=== PATIENT | male | born 1930 ===

== ENCOUNTER 2017-04-22 06:31 | Observation (INO) | payer MEDICARE ==
[2017-04-22 06:56] VITALS: BMI 30.7
--- NOTE | 2017-04-22 07:37 | C.PDOC ---
History Of Present Illness 87 Y/O MALE PRESENTS TO ED WITH C.O COUGH X 4DAYS. DENIES FEVER OR OTHER ASSOCIATED SYMPTOMS. . 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 denies: Fever, Chills, Vomiting, Diarrhea Ear Symptoms: Bilateral: None Recent travel outside of the [place]: No Past Medical History Reviewed: Historical Data, Nursing Documentation, Vital Signs Vital Signs: Last Vital Signs Temp 98.1 F 04/22/17 06:56 Pulse 111 H 04/22/17 06:56 Resp 20 04/22/17 06:56 BP 129/80 04/22/17 06:56 Pulse Ox 96 04/22/17 08:24 - Medical History PMH: Benign Prostatic Hyperplasia (CANCER OF PROSTATE), Gall Bladder Disease, HTN, Hypercholesterolemia, Chronic Kidney Disease (renal insuffieciency) Surgical History: Cholecystectomy Family History: States: Unknown Family Hx - Social History Hx Tobacco Use: No Hx Alcohol Use: No Hx Substance Use: No - Immunization History Hx Tetanus Toxoid Vaccination: No Hx Influenza Vaccination: No Hx Pneumococcal Vaccination: No (UNSURE) Review Of Systems Except As Marked, All Systems Reviewed And Found Negative. Constitutional: Negative for: Fever, Chills Cardiovascular: Negative for: Chest Pain Respiratory: Positive for: Cough. Negative for: Shortness of Breath, Wheezing Gastrointestinal: Negative for: Nausea, Vomiting, Abdominal Pain Skin: Negative for: Rash Neurological: Negative for: Headache, Dizziness Physical Exam - Physical Exam Appears: Non-toxic, No Acute Distress Skin: Normal Color, Warm, Dry Head: Atraumatic, Normacephalic Oral Mucosa: Moist Chest: Symmetrical Cardiovascular: Rhythm Regular Respiratory: No Accessory Muscle Use, Rales (L > R MID-BASILAR ), No Stridor, No Wheezing Gastrointestinal/Abdominal: Soft, No Tenderness Back: Normal Inspection Extremity: Normal ROM, Capillary Refill (< 2 SEC.) Neurological/Psych: Oriented x3, Normal Speech, Normal Cognition ED Course And Treatment - Laboratory Results Result Diagrams: 04/22/17 08:04 04/22/17 08:04 ECG: Interpreted By Me ECG Rhythm: Sinus Tachycardia, 1st Degree HB ECG Interpretation: Abnormal Rate From EC O2 Sat by Pulse Oximetry: 96 (RA) Pulse Ox Interpretation: Normal - Radiology CXR: Interpreted by Me CXR Interpretation: Yes: Other (PULMONARY FIBROSIS, UNCHANGED FROM 2014) Progress - Re-Evaluation Re-evaluation Note: 04/22/17 07:40 EKG, CXR, BLOODWORK. 04/22/17 08:46 PERSIST PROD COUGH. D/W DR [facility] GENERAL OFFICE DISPATCHER WILL ADMIT - Data Reviewed Data Reviewed: Lab, Diagnostic imaging, EKG, Old records - Continuity of Care Discussed patient case with:: Patient, On-call PMD-pt unassigned Disposition Counseled Patient/Family Regarding: Studies Performed, Diagnosis - Disposition Disposition: HOSPITALIZED Disposition Time: 09:01 Condition: STABLE Forms: [employer] ([place]) - POA Present On Arrival: None - Clinical Impression Clinical Impression: Pneumonia, Pulmonary asbestosis - Scribe Statement The provider has reviewed the documentation as recorded by the Scribe SM All medical record entries made by the Scribe were at my direction and personally dictated by me. I have reviewed the chart and agree that the record accurately reflects my personal performance of the history, physical exam, medical decision making, and the department course for this patient. I have also personally directed, reviewed, and agree with the discharge instructions and disposition. Decision To Admit - Pt Status Changed To: Hospital Disposition Of: Observation - . Bed Request Type: Regular Admitting Physician: Keith Vegas Patient Diagnosis: Pneumonia, Pulmonary asbestosis
[2017-04-22 08:09] LABS: BASO # 0.1 K/uL (0.0-0.2); BASO % 0.3 % (0.0-2.0); EOS # 0.3 K/uL (0.0-0.7); EOS % 1.5 % (0.0-4.0); HEMATOCRIT 41.3 % (35.0-51.0); LYMPH # 1.9 K/uL (1.0-4.3); LYMPH % 11.5 % (20.0-40.0); MEAN CELL VOLUME 94.2 fL (80.0-94.0); MEAN CORPUSCULAR HEMOGLOBIN 32.4 pg (27.0-31.0); MEAN CORPUSCULAR HGB CONC 34.4 g/dL (33.0-37.0); MONO # 1.9 K/uL (0.0-0.8); RED CELL DISTRIBUTION WIDTH 13.3 % (11.5-14.5)
[2017-04-22 08:16] LABS: POTASSIUM 3.7 mmol/L (3.6-5.2)
[2017-04-22 08:18] LABS: ALB/GLOB RATIO 0.8 (1.0-2.1); BILIRUBIN,TOTAL 1.6 mg/dL (0.2-1.3); INR 1.2; TOTAL PROTEIN 7.9 g/dL (6.3-8.3)
[2017-04-22 08:19] LABS: CALCIUM 9.9 mg/dl (8.6-10.4)
[2017-04-22 08:36] LABS: TROPONIN I 0.018 ng/mL (0.00-0.120)
[2017-04-22] MEDS ORDERED: cefTRIAXone IV 1 gm in Dextros 50 ML IV STA (08:45)
[2017-04-22] MEDS ORDERED: Azithromycin 500 MG in Sodium Chloride 0.9% 250 ML IV STA (08:45)
[2017-04-22] MEDS ORDERED: Albuterol 0.083% Inhal Sol (2.5 mg/3 mL) UD INH STA (08:45)
[2017-04-22] MEDS ORDERED: cefTRIAXone IV 1 gm in Dextros 50 ML IVPB ONE (08:59)
[2017-04-22 09:17] LABS: RBC URINE 3 /hpf (0-3); URINE BILIRUBIN NEGATIVE (NEGATIVE); URINE BLOOD NEGATIVE (NEGATIVE); URINE COLOR Amber (YELLOW); URINE GLUCOSE (UA) NORMAL (Normal); URINE KETONE NEGATIVE (NEGATIVE); URINE LEUKOCYTE ESTERASE NEG Leu/uL (Negative); URINE PROTEIN 2+ mg/dL (NEGATIVE); WBC URINE 1 /hpf (0-5)
--- NOTE | 2017-04-22 09:24 | RAD ---
HISTORY: SOB COMPARISON: Comparison made with prior study dated 08/01/2015. Comparison also made with prior CT scan chest 04/04/2016. TECHNIQUE: Chest PA and lateral FINDINGS: LUNGS: Current study re- demonstrates at chronic interstitial fibrosis of most pronounced in the mid to lower lung edouard. In addition, there also appears be chronic appearing pleural thickening particularly notable in the left lung base associated with calcified pleural plaque which are less well seen on this study as compared to high-resolution CT scan chest. PLEURA: As above. No apparent pneumothorax othorax apparent. CARDIOVASCULAR: Heart size is enlarged. Aneurysmal dilatation of the ascending thoracic aorta also less well seen compared to high-resolution CT chest. OSSEOUS STRUCTURES: No significant abnormalities. VISUALIZED UPPER ABDOMEN: Cholecystectomy clips unchanged OTHER FINDINGS: None. IMPRESSION: Re- demonstrated are chronic interstitial fibrotic changes most pronounced the lung bases. Chronic pleural thickening and calcified pleural plaque changes are less well seen compared to prior CT scan chest. Chronic atelectasis/ scarring left lung base. Cardiomegaly. Aneurysmal dilatation of the ascending thoracic aorta less well seen on this exam compared to high-resolution chest.
[2017-04-22] MEDS ORDERED: Azithromycin 500mg/250ML NS 500 MG/250 ML BAG IVPB SCH (10:15)
[2017-04-22] MEDS: Azithromycin 500 MG in Sodium Chloride 0.9% 250 ML IVPB SCH (12:43)
[2017-04-22] MEDS: Pantoprazole 40 mg EC Tab PO SCH (13:00)
[2017-04-22 16:18] VITALS: RESP 20
[2017-04-22] MEDS: Albuterol-Ipratrop 3 mg / 0.5 (3 ml) UD INH SCH (20:55)
--- NOTE | 2017-04-22 22:41 | CP.PCM.HP ---
History of Present Illness - History of Present Illness History of Present Illness: 87 Y/O HM WITH CHRONIC LUNG DISEASE FOR MANY YEARS AND HE HAS 4 DAYS OF COUGH CONGESTION, FEVER CHILLS AND SOB, CHEST TIGHTNESS AND CONGESTION ON O2 Present on Admission - Present on Admission Any Indicators Present on Admission: No History of DVT/PE: No History of Uncontrolled Diabetes: No Urinary Catheter: No Decubitus Ulcer Present: No Review of Systems - Review of Systems Systems not reviewed;Unavailable: Respiratory Distress - Constitutional Constitutional: Chills - EENT Nose/Mouth/Throat: Nasal Discharge - Cardiovascular Cardiovascular: Pedal Edema - Respiratory Respiratory: Cough, Dyspnea, Dyspnea on Exertion, Chest Congestion, Excessive Mucous Production, Change in Mucous Color, Pain with Coughing - Gastrointestinal Gastrointestinal: Bloating - Musculoskeletal Musculoskeletal: Arthralgias - Integumentary Integumentary: Dry Skin - Neurological Neurological: Weakness Past Patient History - Past Medical History & Family History Past Medical History?: Yes - Past Social History Smoking Status: Never Smoked - CARDIAC Hx Hypercholesterolemia: Yes Hx Hypertension: Yes - PULMONARY Hx Respiratory Disorders: Yes (abestos exposure hx) - NEUROLOGICAL Hx Neurological Disorder: Yes Hx Vertigo: Yes - HEENT Hx HEENT Problems: Yes Hx Cataracts: Yes - RENAL Hx Chronic Kidney Disease: Yes (renal insuffieciency) - ENDOCRINE/METABOLIC Hx Endocrine Disorders: No - HEMATOLOGICAL/ONCOLOGICAL Hx Blood Disorders: Yes Hx Cancer: Yes (prostate hx radiation 10 yrs ago) - INTEGUMENTARY Hx Dermatological Problems: No - MUSCULOSKELETAL/RHEUMATOLOGICAL Hx Musculoskeletal Disorders: No Hx Falls: No - GASTROINTESTINAL Hx Gall Bladder Disease: Yes - GENITOURINARY/GYNECOLOGICAL Hx Genitourinary Disorders: Yes Hx Prostate Cancer: Yes - PSYCHIATRIC Hx Substance Use: No - SURGICAL HISTORY Hx Cholecystectomy: Yes - ANESTHESIA Hx Anesthesia: Yes Hx Anesthesia Reactions: No Hx Malignant Hyperthermia: No Meds Allergies/Adverse Reactions: Allergies Allergy/AdvReac Type Severity Reaction Status Date / Time No Known Allergies Allergy Verified 04/22/17 06:47 Physical Exam - Constitutional Appears: Chronically Ill - Head Exam Head Exam: ATRAUMATIC, NORMAL INSPECTION, NORMOCEPHALIC - Eye Exam Eye Exam: EOMI, Normal appearance, PERRL Pupil Exam: NORMAL ACCOMODATION - ENT Exam ENT Exam: Mucous Membranes Moist, Normal Exam, Normal Oropharynx, TM's Normal Bilaterally - Neck Exam Neck exam: Positive for: Normal Inspection - Respiratory Exam Respiratory Exam: Decreased Breath Sounds, Prolonged Expiratory Phase, Rales, Rhonchi, Wheezes - Cardiovascular Exam Cardiovascular Exam: Tachycardia, REGULAR RHYTHM, +S1, +S2 - GI/Abdominal Exam GI & Abdominal Exam: Normal Bowel Sounds, Soft - Rectal Exam Rectal Exam: NORMAL INSPECTION - Exam Exam: NORMAL INSPECTION - Extremities Exam Extremities exam: Positive for: normal capillary refill, pedal pulses present - Back Exam Back exam: NORMAL INSPECTION - Neurological Exam Neurological exam: Alert, CN II-XII Intact, Normal Gait, Oriented x3, Reflexes Normal - Psychiatric Exam Psychiatric exam: Normal Affect, Normal Mood - Skin Skin Exam: Intact Results - Vital Signs Recent Vital Signs: Last Vital Signs Temp 99.1 F 04/22/17 16:00 Pulse 78 04/22/17 20:57 Resp 20 04/22/17 16:00 BP 143/73 04/22/17 16:00 Pulse Ox 95 04/22/17 16:00 - Labs Result Diagrams: 04/22/17 08:04 04/22/17 08:04 Labs: Laboratory Results - last 24 hr 04/22/17 09:04 Urine Color Trudy Urine Clarity Clear Urine pH 5.0 Ur Specific [place] 1.024 Urine Protein 2+ H Urine Glucose (UA) Normal Urine Ketones Negative Urine Blood Negative Urine Nitrate Negative Urine Bilirubin Negative Urine Urobilinogen 2.0 Ur Leukocyte Esterase Neg Urine WBC (Auto) 1 Urine RBC (Auto) 3 Ur Squamous Epith Cells < 1 Assessment & Plan (1) Chronic lung disease Status: Chronic Priority: High (2) Hypertension Status: Chronic Priority: Low (3) Pneumonia Assessment and Plan: R/O PNEUMONIA, CT CHEST POSITIVE Status: Acute
[2017-04-23] MEDS: Albuterol-Ipratrop 3 mg / 0.5 (3 ml) UD INH SCH ×4 (01:48→20:21)
[2017-04-23 08:15] LABS: BASO % 0.1 % (0.0-2.0); HEMATOCRIT 37.7 % (35.0-51.0); LYMPH # 1.9 K/uL (1.0-4.3); LYMPH % 13.2 % (20.0-40.0); MEAN CELL VOLUME 94.6 fL (80.0-94.0); MEAN CORPUSCULAR HEMOGLOBIN 31.7 pg (27.0-31.0); MEAN CORPUSCULAR HGB CONC 33.5 g/dL (33.0-37.0); MEAN PLATELET VOLUME 8.1 fL (7.2-11.7); MONO # 0.6 K/uL (0.0-0.8); MONO % 4.6 % (0.0-10.0); RED CELL DISTRIBUTION WIDTH 13.4 % (11.5-14.5); WHITE BLOOD COUNT 14.1 K/uL (4.8-10.8)
[2017-04-23] MEDS: Pantoprazole 40 mg EC Tab PO SCH (10:00)
[2017-04-23] MEDS: Enoxaparin 40 mg Syringe SC SCH (10:00)
[2017-04-23] MEDS: NIFEdipine 30 mg ER Tab PO SCH (10:00)
[2017-04-23] MEDS: MethylPREDNISolone 40 mg Vial IV SCH ×3 (10:18→21:12)
[2017-04-23] MEDS: Azithromycin 500 MG in Sodium Chloride 0.9% 250 ML IVPB SCH (12:18)
--- NOTE | 2017-04-23 23:00 | CP.PCM.PN ---
Subjective - Date & Time of Evaluation Date of Evaluation: 04/23/17 Time of Evaluation: 11:31 - Subjective Subjective: COUGH CONGESTION, LESS SOB, NO FEVER, POSITIVE LEUKOCYTOSIS Objective - Vital Signs/Intake and Output Vital Signs (last 24 hours): Temp Pulse Resp BP Pulse Ox 97.7 F 103 H 20 106/56 L 96 04/23/17 15:00 04/23/17 16:49 04/23/17 15:00 04/23/17 16:49 04/23/17 16:49 - Medications Medications: Current Medications Albuterol/Ipratropium (Duoneb 3 Mg/0.5 Mg (3 Ml) Ud) 3 ml INH RQ6 [facility] Last Admin: 04/23/17 20:21 Dose: 3 ml Enoxaparin Sodium (Lovenox) 40 mg SC DAILY [facility] Last Admin: 04/23/17 10:00 Dose: 40 mg Ceftriaxone Sodium 1 gm/ (Sodium Chloride) 100 mls @ 100 mls/hr IVPB DAILY [facility] Last Admin: 04/23/17 10:03 Dose: 100 mls/hr Azithromycin 500 mg/ Sodium (Chloride) 250 mls @ 167 mls/hr IVPB Q24H [facility] Last Admin: 04/23/17 12:18 Dose: 167 mls/hr Methylprednisolone (Solu-Medrol) 40 mg IV Q12 [facility] Last Admin: 04/23/17 21:12 Dose: 40 mg Nifedipine (Procardia Xl) 30 mg PO DAILY [facility] Last Admin: 04/23/17 10:00 Dose: 30 mg Pantoprazole Sodium (Protonix Ec Tab) 40 mg PO DAILY [facility] Last Admin: 04/23/17 10:00 Dose: 40 mg Pneumococcal Polyvalent Vaccine (Pneumovax 23 Vaccine) 0.5 ml IM .ONCE ONE Stop: 04/24/17 10:01 Rosuvastatin Calcium (Crestor) 10 mg PO HS [facility] Last Admin: 04/23/17 21:12 Dose: 10 mg Tamsulosin HCl (Flomax) 0.4 mg PO DAILY [facility] Last Admin: 04/23/17 10:00 Dose: 0.4 mg - Labs Labs: PT 13.7 SECONDS (9.7-12.2) H 04/22/17 08:04 INR 1.2 04/22/17 08:04 APTT 29 SECONDS (21-34) 04/22/17 08:04 - Constitutional Appears: Non-toxic, No Acute Distress - Head Exam Head Exam: ATRAUMATIC, NORMAL INSPECTION, NORMOCEPHALIC - Eye Exam Eye Exam: EOMI, Normal appearance Pupil Exam: NORMAL ACCOMODATION - ENT Exam ENT Exam: Mucous Membranes Moist, Normal Exam - Neck Exam Neck Exam: Normal Inspection - Respiratory Exam Respiratory Exam: Clear to Ausculation Bilateral, Prolonged Expiratory Phase, Rhonchi, Wheezes, NORMAL BREATHING PATTERN - GI/Abdominal Exam GI & Abdominal Exam: Soft, Normal Bowel Sounds - Rectal Exam Rectal Exam: NORMAL INSPECTION - Extremities Exam Extremities Exam: Full ROM, Normal Capillary Refill, Normal Inspection - Back Exam Back Exam: NORMAL INSPECTION - Neurological Exam Neurological Exam: Awake, CN II-XII Intact, Normal Gait, Oriented x3 - Psychiatric Exam Psychiatric exam: Normal Mood - Skin Skin Exam: Warm Assessment and Plan (1) Chronic lung disease Status: Chronic (2) Hypertension Status: Chronic (3) Pneumonia Assessment & Plan: ON ANTIBIOTICS Status: Acute
[2017-04-24] MEDS: Albuterol-Ipratrop 3 mg / 0.5 (3 ml) UD INH SCH ×5 (01:43→19:11)
[2017-04-24] MEDS ORDERED: Aluminum Hydroxide/Magnesium Hydroxide Susp (30 mL) PO STA (01:53)
[2017-04-24] MEDS: Pantoprazole 40 mg EC Tab PO SCH (09:41)
[2017-04-24] MEDS: MethylPREDNISolone 40 mg Vial IV SCH ×2 (09:42→21:30)
[2017-04-24] MEDS: NIFEdipine 30 mg ER Tab PO SCH (09:42)
[2017-04-24] MEDS: Enoxaparin 40 mg Syringe SC SCH (09:42)
[2017-04-24] MEDS ORDERED: Pneumococcal 23-Valent Vaccine IM ONE (10:00)
[2017-04-24] MEDS: Azithromycin 500 MG in Sodium Chloride 0.9% 250 ML IVPB SCH (11:16)
[2017-04-24] MEDS ORDERED: Aluminum Hydroxide/Magnesium Hydroxide Susp (30 mL) PO PRN (18:30)
--- NOTE | 2017-04-24 22:26 | CP.PCM.PN ---
Subjective - Date & Time of Evaluation Date of Evaluation: 04/24/17 Time of Evaluation: 10:22 - Subjective Subjective: cough,less sob, no chest pain, no nausea. Objective - Vital Signs/Intake and Output Vital Signs (last 24 hours): Temp Pulse Resp BP Pulse Ox 98.0 F 93 H 20 111/70 96 04/24/17 15:00 04/24/17 15:00 04/24/17 15:00 04/24/17 15:00 04/24/17 15:00 Intake and Output: 04/24/17 04/25/17 18:59 06:59 Intake Total 750 800 Balance 750 800 - Medications Medications: Current Medications Al Hydrox/Mg Hydrox/Simethicone (Maalox 30 Ml) 30 ml PO TID PRN PRN Reason: Indigestion / Heartburn Last Admin: 04/24/17 18:27 Dose: 30 ml Albuterol/Ipratropium (Duoneb 3 Mg/0.5 Mg (3 Ml) Ud) 3 ml INH RQ6 [facility] Last Admin: 04/24/17 19:11 Dose: 3 ml Enoxaparin Sodium (Lovenox) 40 mg SC DAILY [facility] Last Admin: 04/24/17 09:42 Dose: 40 mg Ceftriaxone Sodium 1 gm/ (Sodium Chloride) 100 mls @ 100 mls/hr IVPB DAILY [facility] Last Admin: 04/24/17 09:42 Dose: 100 mls/hr Azithromycin 500 mg/ Sodium (Chloride) 250 mls @ 167 mls/hr IVPB Q24H [facility] Last Admin: 04/24/17 11:16 Dose: 167 mls/hr Methylprednisolone (Solu-Medrol) 40 mg IV Q12 [facility] Last Admin: 04/24/17 21:30 Dose: 40 mg Nifedipine (Procardia Xl) 30 mg PO DAILY [facility] Last Admin: 04/24/17 09:42 Dose: 30 mg Pantoprazole Sodium (Protonix Ec Tab) 40 mg PO DAILY [facility] Last Admin: 04/24/17 09:41 Dose: 40 mg Rosuvastatin Calcium (Crestor) 10 mg PO HS [facility] Last Admin: 04/24/17 21:30 Dose: 10 mg Tamsulosin HCl (Flomax) 0.4 mg PO DAILY [facility] Last Admin: 04/24/17 09:41 Dose: 0.4 mg - Labs Labs: PT 13.7 SECONDS (9.7-12.2) H 04/22/17 08:04 INR 1.2 04/22/17 08:04 APTT 29 SECONDS (21-34) 04/22/17 08:04 - Constitutional Appears: Non-toxic, No Acute Distress - Head Exam Head Exam: ATRAUMATIC, NORMAL INSPECTION, NORMOCEPHALIC - Eye Exam Eye Exam: EOMI, Normal appearance, PERRL Pupil Exam: NORMAL ACCOMODATION - ENT Exam ENT Exam: Mucous Membranes Moist, Normal Exam, Normal Oropharynx, TM's Normal Bilaterally - Respiratory Exam Respiratory Exam: Decreased Breath Sounds, Rales - Cardiovascular Exam Cardiovascular Exam: Tachycardia, REGULAR RHYTHM, +S1, +S2, Murmur - GI/Abdominal Exam GI & Abdominal Exam: Soft, Normal Bowel Sounds - Extremities Exam Extremities Exam: Full ROM, Normal Capillary Refill, Normal Inspection - Neurological Exam Neurological Exam: Alert, Awake, CN II-XII Intact, Normal Gait, Oriented x3 Neuro motor strength exam: Left Upper Extremity: 5, Right Upper Extremity: 5, Left Lower Extremity: 5, Right Lower Extremity: 5 - Psychiatric Exam Psychiatric exam: Normal Mood - Skin Skin Exam: Intact Assessment and Plan (1) Chronic lung disease Status: Chronic (2) Hypertension Status: Chronic (3) Pneumonia Status: Acute
[2017-04-25 01:15] VITALS: O2SAT 97
[2017-04-25] MEDS: Albuterol-Ipratrop 3 mg / 0.5 (3 ml) UD INH SCH ×3 (01:16→12:53)
[2017-04-25 07:44] LABS: POTASSIUM 4.3 mmol/L (3.6-5.2)
[2017-04-25 07:47] LABS: CALCIUM 8.8 mg/dl (8.6-10.4)
[2017-04-25 07:55] LABS: BASO % 0.1 % (0.0-2.0); HEMATOCRIT 34.8 % (35.0-51.0); LYMPH # 1.3 K/uL (1.0-4.3); LYMPH % 7.2 % (20.0-40.0); MEAN CELL VOLUME 93.5 fL (80.0-94.0); MEAN CORPUSCULAR HEMOGLOBIN 31.8 pg (27.0-31.0); MEAN PLATELET VOLUME 7.9 fL (7.2-11.7); MONO # 0.8 K/uL (0.0-0.8); MONO % 4.2 % (0.0-10.0); PLATELET COUNT 345 K/uL (130-400); RED CELL DISTRIBUTION WIDTH 13.7 % (11.5-14.5); WHITE BLOOD COUNT 18.4 K/uL (4.8-10.8)
[2017-04-25 08:43] VITALS: BP 110/58; PULSE 97; TEMP 98
[2017-04-25] MEDS: Enoxaparin 40 mg Syringe SC SCH (09:28)
[2017-04-25] MEDS: MethylPREDNISolone 40 mg Vial IV SCH (09:28)
[2017-04-25] MEDS: Pantoprazole 40 mg EC Tab PO SCH (09:28)
[2017-04-25 09:51] LABS: METAMYELOCYTE 1 % (0-0); MYELOCYTE 1 % (0-0); NEUTROPHIL 79 % (50-75); TOTAL CELLS COUNTED 100
[2017-04-25] MEDS: NIFEdipine 30 mg ER Tab PO SCH (10:06)
[2017-04-25] MEDS: Azithromycin 500 MG in Sodium Chloride 0.9% 250 ML IVPB SCH (11:27)
--- NOTE | 2017-04-25 12:18 | CP.PCM.PN ---
Subjective - Date & Time of Evaluation Date of Evaluation: 04/25/17 Time of Evaluation: 10:35 - Subjective Subjective: Patient seen and examined today, sob, and congestion improved , denies any fever, chills, N/V/D oob ambulating without sob , Objective - Vital Signs/Intake and Output Vital Signs (last 24 hours): Temp Pulse Resp BP Pulse Ox 98 F 97 H 20 110/58 L 97 04/25/17 08:00 04/25/17 08:00 04/25/17 08:00 04/25/17 08:00 04/25/17 08:00 Intake and Output: 04/25/17 04/25/17 06:59 18:59 Intake Total 1000 Balance 1000 - Medications Medications: Current Medications Al Hydrox/Mg Hydrox/Simethicone (Maalox 30 Ml) 30 ml PO TID PRN PRN Reason: Indigestion / Heartburn Last Admin: 04/24/17 18:27 Dose: 30 ml Albuterol/Ipratropium (Duoneb 3 Mg/0.5 Mg (3 Ml) Ud) 3 ml INH RQ6 [facility] Last Admin: 04/25/17 07:37 Dose: 3 ml Enoxaparin Sodium (Lovenox) 40 mg SC DAILY [facility] Last Admin: 04/25/17 09:28 Dose: 40 mg Ceftriaxone Sodium 1 gm/ (Sodium Chloride) 100 mls @ 100 mls/hr IVPB DAILY [facility] Last Admin: 04/25/17 10:07 Dose: 100 mls/hr Azithromycin 500 mg/ Sodium (Chloride) 250 mls @ 167 mls/hr IVPB Q24H [facility] Last Admin: 04/25/17 11:27 Dose: 167 mls/hr Nifedipine (Procardia Xl) 30 mg PO DAILY [facility] Last Admin: 04/25/17 10:06 Dose: 30 mg Pantoprazole Sodium (Protonix Ec Tab) 40 mg PO DAILY [facility] Last Admin: 04/25/17 09:28 Dose: 40 mg Prednisone (Prednisone Tab) 20 mg PO DAILY [facility] Rosuvastatin Calcium (Crestor) 10 mg PO HS [facility] Last Admin: 04/24/17 21:30 Dose: 10 mg Tamsulosin HCl (Flomax) 0.4 mg PO DAILY [facility] Last Admin: 04/25/17 09:28 Dose: 0.4 mg - Labs Labs: 04/25/17 07:21 04/25/17 07:21 PT 13.7 SECONDS (9.7-12.2) H 04/22/17 08:04 INR 1.2 04/22/17 08:04 APTT 29 SECONDS (21-34) 04/22/17 08:04 - Constitutional Appears: Well, No Acute Distress - Respiratory Exam Respiratory Exam: Rhonchi, NORMAL BREATHING PATTERN - Cardiovascular Exam Cardiovascular Exam: REGULAR RHYTHM, +S1, +S2 Assessment and Plan - Assessment and Plan (Free Text) Assessment: A/P 87 yr old male admitted for pneumonia started on rocephin an d zithromycin and clinically improved blood culture and urine culture - negative wbc- elevated - secondary to steroids seen by Dr. Shankar, stable for discharge home ot and f/u with Dr. Shankar office next week saturday
--- NOTE | 2017-04-25 21:11 | CP.PCM.DIS ---
Provider - Provider Date of Admission: 04/23/17 17:25 Attending physician: Keith Shankar MD Diagnosis - Discharge Diagnosis (1) Chronic lung disease Status: Chronic Priority: High (2) Hypertension Status: Chronic Priority: Low (3) Pneumonia Status: Acute Hospital Course - Lab Results Lab Results: Most Recent Lab Values WBC 18.4 K/uL (4.8-10.8) H 04/25/17 07:21 RBC 3.72 Mil/uL (4.40-5.90) L 04/25/17 07:21 Hgb 11.8 g/dL (12.0-18.0) L 04/25/17 07:21 Hct 34.8 % (35.0-51.0) L 04/25/17 07:21 MCV 93.5 fL (80.0-94.0) 04/25/17 07:21 MCH 31.8 pg (27.0-31.0) H 04/25/17 07:21 MCHC 34.0 g/dL (33.0-37.0) 04/25/17 07:21 RDW 13.7 % (11.5-14.5) 04/25/17 07:21 Plt Count 345 K/uL (130-400) 04/25/17 07:21 MPV 7.9 fL (7.2-11.7) 04/25/17 07:21 Neut % (Auto) 88.5 % (50.0-75.0) H 04/25/17 07:21 Lymph % (Auto) 7.2 % (20.0-40.0) L 04/25/17 07:21 [place] % (Auto) 4.2 % (0.0-10.0) 04/25/17 07:21 Eos % (Auto) 0.0 % (0.0-4.0) 04/25/17 07:21 Baso % (Auto) 0.1 % (0.0-2.0) 04/25/17 07:21 Neut # 16.3 K/uL (1.8-7.0) H 04/25/17 07:21 Lymph # 1.3 K/uL (1.0-4.3) 04/25/17 07:21 [place] # 0.8 K/uL (0.0-0.8) 04/25/17 07:21 Eos # 0.0 K/uL (0.0-0.7) 04/25/17 07:21 Baso # 0.0 K/uL (0.0-0.2) 04/25/17 07:21 Neutrophils % (Manual) 79 % (50-75) H 04/25/17 07:21 Band Neutrophils % 7 % (0-2) H 04/25/17 07:21 Lymphocytes % (Manual) 11 % (20-40) L 04/25/17 07:21 Monocytes % (Manual) 1 % (0-10) 04/25/17 07:21 Metamyelocytes % 1 % (0-0) H 04/25/17 07:21 Myelocytes % 1 % (0-0) H 04/25/17 07:21 Toxic Granulation Present 04/25/17 07:21 Platelet Estimate Normal (NORMAL) 04/25/17 07:21 RBC Morphology Normal 04/25/17 07:21 PT 13.7 SECONDS (9.7-12.2) H 04/22/17 08:04 INR 1.2 04/22/17 08:04 APTT 29 SECONDS (21-34) 04/22/17 08:04 Sodium 137 mmol/L (132-148) 04/25/17 07:21 Potassium 4.3 mmol/L (3.6-5.2) 04/25/17 07:21 Chloride 103 mmol/L (98-107) 04/25/17 07:21 Carbon Dioxide 24 mmol/L (22-30) 04/25/17 07:21 Anion Gap 14 (10-20) 04/25/17 07:21 BUN 44 mg/dL (9-20) H 04/25/17 07:21 Creatinine 1.6 MG/DL (0.8-1.5) H 04/25/17 07:21 Est GFR ( Amer) 50 04/25/17 07:21 Est GFR (Non-Af Amer) 41 04/25/17 07:21 Random Glucose 141 mg/dL (75-110) H 04/25/17 07:21 Calcium 8.8 mg/dl (8.6-10.4) 04/25/17 07:21 Total Bilirubin 1.6 mg/dL (0.2-1.3) H 04/22/17 08:04 AST 62 U/L (17-59) H D 04/22/17 08:04 ALT 56 U/L (21-72) 04/22/17 08:04 Alkaline Phosphatase 223 U/L (38-126) H D 04/22/17 08:04 Troponin I 0.0180 ng/mL (0.00-0.120) 04/22/17 08:04 NT-Pro-B Natriuret Pep 590 pg/mL (0-900) 04/22/17 08:04 Total Protein 7.9 g/dL (6.3-8.3) 04/22/17 08:04 Albumin 3.6 g/dL (3.5-5.0) 04/22/17 08:04 Globulin 4.3 gm/dL (2.2-3.9) H 04/22/17 08:04 Albumin/Globulin Ratio 0.8 (1.0-2.1) L 04/22/17 08:04 Urine Color Trudy (YELLOW) 04/22/17 09:04 Urine Clarity Clear (Clear) 04/22/17 09:04 Urine pH 5.0 (5.0-8.0) 04/22/17 09:04 Ur Specific [place] 1.024 (1.003-1.030) 04/22/17 09:04 Urine Protein 2+ mg/dL (NEGATIVE) H 04/22/17 09:04 Urine Glucose (UA) Normal mg/dL (Normal) 04/22/17 09:04 Urine Ketones Negative mg/dL (NEGATIVE) 04/22/17 09:04 Urine Blood Negative (NEGATIVE) 04/22/17 09:04 Urine Nitrate Negative (NEGATIVE) 04/22/17 09:04 Urine Bilirubin Negative (NEGATIVE) 04/22/17 09:04 Urine Urobilinogen 2.0 mg/dL (0.2-1.0) 04/22/17 09:04 Ur Leukocyte Esterase Neg [place]/uL (Negative) 04/22/17 09:04 Urine WBC (Auto) 1 /hpf (0-5) 04/22/17 09:04 Urine RBC (Auto) 3 /hpf (0-3) 04/22/17 09:04 Ur Squamous Epith Cells < 1 /hpf (0-5) 04/22/17 09:04 - Hospital Course Hospital Course: 87 Y/O WITH COPD, ON HOME O2 CAME WITH COUGH CONGESTION, FEVER, CHILLS, NO NAUSEA, NO VOMITING Discharge Exam - Head Exam Head Exam: ATRAUMATIC, NORMAL INSPECTION, NORMOCEPHALIC - Eye Exam Eye Exam: EOMI, Normal appearance, PERRL Pupil Exam: NORMAL ACCOMODATION - ENT Exam ENT Exam: Mucous Membranes Moist, Normal Exam, Normal Oropharynx, TM's Normal Bilaterally - Neck Exam Neck exam: Normal Inspection - Respiratory Exam Respiratory Exam: Rales, NORMAL BREATHING PATTERN - Cardiovascular Exam Cardiovascular Exam: REGULAR RHYTHM, Rubs, +S1 - GI/Abdominal Exam GI & Abdominal Exam: Normal Bowel Sounds - Rectal Exam Rectal Exam: NORMAL INSPECTION - Extremities Exam Extremities exam: normal capillary refill, pedal pulses present - Neurological Exam Neurological exam: Alert, CN II-XII Intact, Normal Gait, Oriented x3, Reflexes Normal - Psychiatric Exam Psychiatric exam: Normal Mood - Skin Skin Exam: Dry, Intact, Normal Color, Warm Discharge Plan - Discharge Medications Prescriptions: Amoxicillin 500 mg PO Q8 7 Days predniSONE [predniSONE Tab] 20 mg PO DAILY #23 tab Tiotropium [Spiriva] 18 mcg IH DAILY #30 cap - Follow Up Plan Condition: STABLE Disposition: HOME/ ROUTINE Instructions: Prednisone (By mouth), Amoxicillin (By mouth), Tiotropium (By breathing), Community Acquired Pneumonia (DC), Community Acquired Pneumonia (GEN ), Bacterial Pneumonia (DC), Bacterial Pneumonia (GEN) Additional Instructions: please f/u with Dr. Shankar office on next saturday Continue medication as per Med. REc.
--- NOTE | 2017-04-26 16:19 | CARD ---
APPROVED REPORT EKG Measurement Heart [id number] [place] [id number] [id number] <Conclusion> Sinus tachycardia with 1st degree AV block Otherwise normal ECG
== END 2017-04-25 13:55 | disposition home or self-care (01) ==
LOC: C.ER 06:31 → C.3T 09:01 → INTOOBSV 04-23 17:25 → OBSVTOIN 04-23 17:25
PROVIDERS: ADMIT Internal Medicine; ATTEND Internal Medicine
DX: J18.9 Pneumonia, unspecified organism (principal); Z99.81 Dependence on supplemental oxygen; J44.9 Chronic obstructive pulmonary disease, unspecified; Z85.46 Personal history of malignant neoplasm of prostate; N40.0 Benign prostatic hyperplasia without lower urinary tract symptoms; E78.00 Pure hypercholesterolemia, unspecified; J61 Pneumoconiosis due to asbestos and other mineral fibers; I12.9 Hypertensive chronic kidney disease with stage 1 through stage 4 chronic kidney disease, or unspecified chronic kidney disease; N18.9 Chronic kidney disease, unspecified; Z23 Encounter for immunization
CPT/HCPCS: 36415; 71020; 80048; 80053; 81001; 83880; 84484; 85025; 85610; 85730; 87040; 87086; 90732; 93005; 94640; 97116; 97162; 99285; G0009; G0378; G8978; G8979; J0456; J0696; J1650; J2920; J2930; J7050

== ENCOUNTER 2017-11-12 10:09 | Emergency (ER) | payer MEDICARE ==
[2017-11-12 10:09] VITALS: BMI 30.7
[2017-11-12 10:15] VITALS: BP 154/89; PULSE 93; RESP 18; TEMP 98.4; O2SAT 98
[2017-11-12] MEDS ORDERED: Naproxen 550 mg Tab PO STA (11:03)
--- NOTE | 2017-11-12 11:06 | C.PDOC ---
History Of Present Illness 87-year-old male, presents to the emergency department with complaints of right sided earache and neck pain for the past six days. Patient denies any discharge from ear, nausea/vomiting, chest pain, back pain, visual changes, or fever. No other complaints at this time. Time Seen by Provider: 11/12/17 10:29 Chief Complaint (Nursing): ENT Problem History Per: Patient History/Exam Limitations: None Onset/Duration Of Symptoms: Days Current Symptoms Are (Timing): Still Present Past Medical History Reviewed: Historical Data, Nursing Documentation, Vital Signs Vital Signs: Last Vital Signs Temp 98.4 F 11/12/17 10:13 Pulse 93 H 11/12/17 10:13 Resp 18 11/12/17 10:13 BP 154/89 H 11/12/17 10:13 Pulse Ox 98 11/12/17 11:08 - Medical History PMH: Benign Prostatic Hyperplasia (CANCER OF PROSTATE), Gall Bladder Disease, HTN, Hypercholesterolemia, Chronic Kidney Disease (renal insuffieciency) Surgical History: Cholecystectomy Family History: States: No Known Family Hx - Social History Hx Tobacco Use: No Hx Alcohol Use: No Hx Substance Use: No - Immunization History Hx Tetanus Toxoid Vaccination: No Hx Influenza Vaccination: No Hx Pneumococcal Vaccination: No (UNSURE) Review Of Systems Constitutional: Negative for: Fever, Chills ENT: Positive for: Ear Pain. Negative for: Ear Discharge Musculoskeletal: Positive for: Neck Pain Physical Exam - Physical Exam Appears: Well, Non-toxic, No Acute Distress Skin: Normal Color, Warm, Dry, No Rash Head: Normacephalic Ear(s): Left: Normal, Right: Other (erythematous canal with white discharge and mild swelling of canal. No mastoid tenderness. TM intact.) Nose: Normal Oral Mucosa: Moist Lips: Normal Appearing Throat: No Erythema, No Exudate Neck: Normal ROM, Trachea Midline, No Step Off Deformity, Supple, Other (No meningeal signs) Chest: Symmetrical Cardiovascular: Rhythm Regular, No Murmur Respiratory: Normal Breath Sounds, No Accessory Muscle Use Extremity: No Deformity, No Swelling Neurological/Psych: Oriented x3, Normal Speech ED Course And Treatment O2 Sat by Pulse Oximetry: 98 (RA) Pulse Ox Interpretation: Normal Progress Note: Patient treated with Naproxen and Cipro, will be discharged home with Rx for antibiotic to treat otitis externa, patient instructed to f/u outpatient with pmd or clinic in few days. all questions answered. Disposition Counseled Patient/Family Regarding: Diagnosis, Need For Followup, Rx Given - Disposition Referrals: [facility] [Outside] Vj San MD [Staff Provider] - Disposition: HOME/ ROUTINE Disposition Time: 11:05 Condition: STABLE Additional Instructions: SEGUIMIENTO CON LEAHY MDICO / CLNICA EN 1-2 CONROY SEGUIR CON EL ESPECIALISTA EN [place] DE LA NARIZ DE LA MARIA SI LOS SNTOMAS PERSISTIAN O CONSIGUEN USE MEDICAMENTOS SEGN LO INDICADO FOLLOW UP WITH YOUR DOCTOR/CLINIC IN 1-2 DAYS FOLLOW UP WITH EAR NOSE THROAT SPECIALIST IF SYMPTOMS PERSIST OR WORSEN USE MEDICATIONS DIRECTED Prescriptions: Ciprofloxacin [Cipro] 1 tab PO BID #14 tab Ofloxacin Otic 0.3% [Floxin 0.3% Otic Soln] 10 drop GT ONCE #1 bottle Instructions: Outer Ear Infection (DC) Forms: [email or web address] (Maltese) Print Language: HUNGARIAN - Clinical Impression Clinical Impression: Otitis externa - Scribe Statement The provider has reviewed the documentation as recorded by the Scribe (Chasidy Roach) All medical record entries made by the Scribe were at my direction and personally dictated by me. I have reviewed the chart and agree that the record accurately reflects my personal performance of the history, physical exam, medical decision making, and the department course for this patient. I have also personally directed, reviewed, and agree with the discharge instructions and disposition.
[2017-11-12] MEDS ORDERED: Naproxen 550 mg Tab PO ONE (11:14)
== END 2017-11-12 11:15 | disposition home or self-care (01) ==
LOC: C.ER 10:09
DX: H60.91 Unspecified otitis externa, right ear (principal)

== ENCOUNTER 2018-10-03 08:49 | Emergency (ER) | payer MEDICARE ==
[2018-10-03 08:59] VITALS: BMI 29.2
[2018-10-03 09:01] VITALS: RESP 18
[2018-10-03 09:43] LABS: BASO # 0.1 K/uL (0.0-0.2); BASO % 0.7 % (0.0-2.0); EOS # 0.3 K/uL (0.0-0.7); EOS % 2.7 % (0.0-4.0); LYMPH # 2.7 K/uL (1.0-4.3); LYMPH % 21.1 % (20.0-40.0); MEAN CELL VOLUME 95.3 fL (80.0-94.0); MEAN CORPUSCULAR HEMOGLOBIN 32.1 pg (27.0-31.0); MEAN CORPUSCULAR HGB CONC 33.7 g/dL (33.0-37.0); MEAN PLATELET VOLUME 8.1 fL (7.2-11.7); MONO # 0.8 K/uL (0.0-0.8); MONO % 6.4 % (0.0-10.0); NEUT # 8.7 K/uL (1.8-7.0); NEUT % 69.1 % (50.0-75.0); NRBC % 0.1 % (0.0-2.0); RBC 4.74 Mil/uL (4.40-5.90); RED CELL DISTRIBUTION WIDTH 13.6 % (11.5-14.5); WHITE BLOOD COUNT 12.6 K/uL (4.8-10.8)
[2018-10-03 09:56] LABS: HEMOGLOBIN 15.2 g/dL (12.0-18.0)
[2018-10-03 10:02] LABS: ALB/GLOB RATIO 1.4 (1.0-2.1); ALBUMIN 4.5 g/dL (3.5-5.0); ALT/SGPT 9 U/L (21-72); AST/SGOT 40 U/L (17-59); BLOOD UREA NITROGEN 16 mg/dL (9-20); CALCIUM 9.5 mg/dl (8.6-10.4); GFR NON-AFRICAN AMERICAN 48; LIPASE 74 U/L (23-300)
--- NOTE | 2018-10-03 10:09 | C.PDOC ---
History Of Present Illness 88 y/o male presents to the ED complaining of left lower back pain, left pelvic pain, and left testicular pain for the last 3 days. States pain is intermittent, he is unable to describe quality. No associated nausea, vomiting, diarrhea, fever, chills, or dysuria. 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 Otherwise he denies any penile discharge, rash, hematuria, or incontinence of bowel or bladder. Time Seen by Provider: 10/03/18 09:14 Chief Complaint (Nursing): Abdominal Pain History Per: Patient History/Exam Limitations: no limitations Onset/Duration Of Symptoms: Days (x3) Current Symptoms Are (Timing): Still Present Past Medical History Reviewed: Historical Data, Nursing Documentation, Vital Signs Vital Signs: Last Vital Signs Temp 97.7 F 10/03/18 08:57 Pulse 84 10/03/18 08:57 Resp 18 10/03/18 08:57 BP 168/83 H 10/03/18 08:57 Pulse Ox 95 10/03/18 08:57 - Medical History PMH: Benign Prostatic Hyperplasia (CANCER OF PROSTATE), Gall Bladder Disease, HTN, Hypercholesterolemia, Chronic Kidney Disease (renal insuffieciency) Other PMH: states hx of "asbestos lung" Surgical History: Cholecystectomy Family History: States: Unknown Family Hx - Social History Hx Tobacco Use: No Hx Alcohol Use: No Hx Substance Use: No - Immunization History Hx Tetanus Toxoid Vaccination: No Hx Influenza Vaccination: No Hx Pneumococcal Vaccination: No Review Of Systems Constitutional: Negative for: Fever, Chills Cardiovascular: Negative for: Chest Pain Respiratory: Negative for: Shortness of Breath Gastrointestinal: Positive for: Abdominal Pain (left pelvic). Negative for: Nausea, Vomiting, Diarrhea Genitourinary: Positive for: Other (Left testicular pain). Negative for: Dysuria, Incontinence, Hematuria, Penile Discharge Musculoskeletal: Positive for: Back Pain (left lower) Skin: Negative for: Rash Neurological: Negative for: Weakness, Numbness, Incoordination Physical Exam - Physical Exam Appears: Non-toxic, No Acute Distress, Other (Appears comfortable, speaking in full sentences) Skin: Warm, Dry Head: Atraumatic, Normacephalic Eye(s): bilateral: Normal Inspection, PERRL, EOMI Neck: Normal ROM Chest: Symmetrical Cardiovascular: Murmur (5/6 systolic murmur) Respiratory: No Rhonchi, No Wheezing, Other (Coarse breath sounds bilaterally, greatest at the bases) Gastrointestinal/Abdominal: Soft, Tenderness (mild LLQ tenderness), No Distention, No Guarding, No Rebound Back: Normal Inspection, No CVA Tenderness Male Genital: Normal Inspection, No Testicular Tenderness, No Testicular Swelling Extremity: Bilateral: Atraumatic, No Pedal Edema, Normal Color And Temperature Pulses: Left Dorsalis Pedis: Normal, Right Dorsalis Pedis: Normal Neurological/Psych: Oriented x3, Normal Speech ED Course And Treatment - Laboratory Results Result Diagrams: 10/03/18 09:39 10/03/18 09:39 Lab Results: Total Bilirubin 0.6 mg/dL (0.2-1.3) 10/03/18 09:39 AST 40 U/L (17-59) 10/03/18 09:39 ALT 9 U/L (21-72) L D 10/03/18 09:39 Alkaline Phosphatase 82 U/L (38-126) 10/03/18 09:39 Total Protein 7.7 g/dL (6.3-8.3) 10/03/18 09:39 Albumin 4.5 g/dL (3.5-5.0) 10/03/18 09:39 Globulin 3.3 gm/dL (2.2-3.9) 10/03/18 09:39 Albumin/Globulin Ratio 1.4 (1.0-2.1) 10/03/18 09:39 Lipase 74 U/L (23-300) 10/03/18 09:39 O2 Sat by Pulse Oximetry: 95 (RA) Pulse Ox Interpretation: Normal - CT Scan/US CT Chest/Abd/Pelvis Other Rad Studies (CT/US): Read By Radiologist, Radiology Report Reviewed CT/US Interpretation: Accession No. : [id number]. Patient Name / ID : KENNEY ARAGON / [id number]. Exam Date : 10/03/2018 10:06:19 ( Approved ). Study Comment : Sex / Age : M / 88Y. Creator : Shannon Mueller. Dictator : Nia Arellano MD. Programmer Developer : Farm Reporter : Nia Arellano MD. Approver2 : Report Date : 10/03/2018 10:20:48. My Comment : . Date of service:10/03/2018. CT chest, abdomen, and pelvis without IV contrast. Indication: asbestosis, left flank/llq pain, r/o kidney stone. Technique: Contiguous axial images of the chest, abdomen, and pelvis without oral or IV contrast. Coronal and Sagittal reformats generated and reviewed. This CT exam was performed using 1 or more of the following dose reduction techniques: Automated exposure control, adjustment of the MAA and/or kV according to patient size, and/or use of iterative reconstruction technique. Radiation dose: Total exam DLP = 841.33 MGy-cm. Comparison: Chest CT without IV contrast performed 07/03/17. Findings: V isualized portions of the inferior thyroid gland appear unremarkable. The mediastinal and hilar vascular structures appear within normal limits. The heart appears within normal limits of size. Atherosclerotic calcifications of the aorta. Coronary artery calcifications. Prevascular and mediastinal adenopathy, subcentimeter nonspecific. Aneurysmal dilatation of the ascending aorta measuring approximately 4.1 cm in transverse dimension (coronal series 601, previously approximately 4.1 cm when remeasured in a similar position. No significant pleural effusion. No pneumothorax. Chronic interstitial fibrotic changes re-identified with lower lobe predominance. Extensive calcified pleural plaques. Cholecystectomy. Bilateral renal cysts. No evidence of hydronephrosis or obstructing calculus. Pancreatic atrophy. The noncontrast liver, spleen, and adrenal glands appear unremarkable. The stomach is nondistended. Lack of oral contrast limits evaluation for bowel pathology. Mild colonic wall thickening with subtle inflammatory changes. Diverticulosis without CT evidence of acute diverticulitis. The bowel loops appear within normal limits of caliber without evidence of intestinal obstruction. The appendix appears within normal limits of caliber. No secondary signs of acute appendicitis. There is no definite free air. Under distention of the urinary bladder limits evaluation. Prostate gland measures approximately 3.0 x 3.5 cm and contains calcifications. Osseous demineralization. Degenerative changes. Impression: Ascending aortic aneurysm measures approximately 4.1 cm, stable when remeasured in similar position on prior study. Mild colonic wall thickening with subtle inflammatory changes. Correlate clinically for possibility of colitis. Diverticulosis without CT evidence of acute diverticulitis. Bilateral renal cysts. No evidence of hydronephrosis or obstructing calculus. Cholecystectomy. Chronic interstitial fibrotic changes with lower lobe predominance. Dense pleural calcifications may be seen in the setting of asbestos related pleural disease. Prevascular/medi astinal adenopathy, nonspecific. Additional incidental findings as above. Progress Note: Patients centrifugal machine tender was requesting CT Chest. Ordered noncontrast scan of the chest/abd/pelvis. Blood work and urine sent to the lab for analysis. Disposition Counseled Patient/Family Regarding: Studies Performed, Diagnosis, Need For Followup, Rx Given - Disposition Referrals: Yasmine Lees MD [Medical Doctor] - Raad VOSS,Ziggy Trejo MD [Non-Staff] - Disposition: HOME/ ROUTINE Disposition Time: 12:30 Condition: STABLE Additional Instructions: FOLLOW UP WITH YOUR PRIMARY DOCTOR IN 1-2 DAYS, AND WITH YOUR PACKAGING TECHNICIAN WITHIN 1 WEEK USE MEDICATIONS DIRECTED RETURN TO EMERGENCY ROOM IF YOUR SYMPTOMS BECOME WORSE SIGA CON LEAHY MDICO PRIMARIO EN 1-2 CONROY, Y CON LEAHY PULMONLOGO DENTRO DE 1 SEMANA UTILICE MEDICAMENTOS SAJI SE DIRIGE VUELVA A LA JAY DE EMERGENCIA SI THALIA SNTOMAS SE HACEN PEOR Prescriptions: Acetaminophen [Tylenol 325mg tab] 650 mg PO Q6 PRN #30 tab PRN Reason: pain/fever Ciprofloxacin [Cipro] 1 tab PO BID #14 tab Dicyclomine [Bentyl] 20 mg PO Q6 PRN #15 tab PRN Reason: ABDOMINAL CRAMPING metroNIDAZOLE [Flagyl] 500 mg PO TID #21 tab Instructions: Aortic Aneurysm (DC), Colitis (DC) Forms: [employer] ([place] Islander) Print Language: AFGHAN - Clinical Impression Clinical Impression: Renal cyst, Aortic aneurysm, Colitis, 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 I have reviewed the chart and agree that the record accurately reflects my personal performance of the history, physical exam, medical decision making, and the department course for this patient. I have also personally directed, reviewed, and agree with the discharge instructions and disposition.
[2018-10-03 10:11] LABS: B-TYPE NATRIURETIC PEPTIDE 513 pg/mL (0-900); CK-MB 0.57 ng/mL (0.0-3.38)
[2018-10-03 10:39] LABS: URINE BILIRUBIN NEGATIVE (NEGATIVE); URINE BLOOD NEGATIVE (NEGATIVE); URINE CLARITY Clear (Clear); URINE COLOR Yellow (YELLOW); URINE GLUCOSE (UA) NORMAL (Normal); URINE LEUKOCYTE ESTERASE NEG Leu/uL (Negative); URINE PROTEIN 2+ mg/dL (NEGATIVE); URINE UROBILINOGEN NORMAL mg/dL (0.2-1.0)
--- NOTE | 2018-10-03 11:52 | CT ---
Date of service:10/03/2018 CT chest, abdomen, and pelvis without IV contrast Indication: asbestosis, left flank/llq pain, r/o kidney stone Technique: Contiguous axial images of the chest, abdomen, and pelvis without oral or IV contrast. Coronal and Sagittal reformats generated and reviewed. This CT exam was performed using 1 or more of the following dose reduction techniques: Automated exposure control, adjustment of the MAA and/or kV according to patient size, and/or use of iterative reconstruction technique. Radiation dose: Total exam DLP = 841.33 MGy-cm. Comparison: Chest CT without IV contrast performed 07/03/17 Findings: Visualized portions of the inferior thyroid gland appear unremarkable. The mediastinal and hilar vascular structures appear within normal limits. The heart appears within normal limits of size. Atherosclerotic calcifications of the aorta. Coronary artery calcifications. Prevascular and mediastinal adenopathy, subcentimeter nonspecific. Aneurysmal dilatation of the ascending aorta measuring approximately 4.1 cm in transverse dimension (coronal series 601, previously approximately 4.1 cm when remeasured in a similar position. No significant pleural effusion. No pneumothorax. Chronic interstitial fibrotic changes re-identified with lower lobe predominance. Extensive calcified pleural plaques. Cholecystectomy. Bilateral renal cysts. No evidence of hydronephrosis or obstructing calculus. Pancreatic atrophy. The noncontrast liver, spleen, and adrenal glands appear unremarkable. The stomach is nondistended. Lack of oral contrast limits evaluation for bowel pathology. Mild colonic wall thickening with subtle inflammatory changes. Diverticulosis without CT evidence of acute diverticulitis. The bowel loops appear within normal limits of caliber without evidence of intestinal obstruction. The appendix appears within normal limits of caliber. No secondary signs of acute appendicitis. There is no definite free air. Under distention of the urinary bladder limits evaluation. Prostate gland measures approximately 3.0 x 3.5 cm and contains calcifications. Osseous demineralization. Degenerative changes. Impression: Ascending aortic aneurysm measures approximately 4.1 cm, stable when remeasured in similar position on prior study. Mild colonic wall thickening with subtle inflammatory changes. Correlate clinically for possibility of colitis. Diverticulosis without CT evidence of acute diverticulitis. Bilateral renal cysts. No evidence of hydronephrosis or obstructing calculus. Cholecystectomy. Chronic interstitial fibrotic changes with lower lobe predominance. Dense pleural calcifications may be seen in the setting of asbestos related pleural disease. Prevascular/mediastinal adenopathy, nonspecific. Additional incidental findings as above.
[2018-10-03 13:08] VITALS: BP 154/96; PULSE 91; TEMP 98; O2SAT 97
== END 2018-10-03 13:07 | disposition home or self-care (01) ==
LOC: C.ER 08:49
DX: I71.9 Aortic aneurysm of unspecified site, without rupture (principal); J84.10 Pulmonary fibrosis, unspecified; K52.9 Noninfective gastroenteritis and colitis, unspecified; N28.1 Cyst of kidney, acquired; Z77.090 Contact with and (suspected) exposure to asbestos; I12.9 Hypertensive chronic kidney disease with stage 1 through stage 4 chronic kidney disease, or unspecified chronic kidney disease; N18.9 Chronic kidney disease, unspecified; E78.00 Pure hypercholesterolemia, unspecified; N40.0 Benign prostatic hyperplasia without lower urinary tract symptoms; Z85.46 Personal history of malignant neoplasm of prostate; Z90.49 Acquired absence of other specified parts of digestive tract